=== PATIENT | male | born 1990 | race African-American/Black ===

== ENCOUNTER 2021-07-16 08:40 | Emergency (ER) | payer OTHER, SELFPAY ==
[2021-07-16 08:51] VITALS: BP 139/69; PULSE 70; RESP 18; TEMP 37.2; O2SAT 100
--- NOTE | 2021-07-16 09:17 | ED.BACK ---
HPI - Back Pain/Injury General Chief Complaint: Back Pain/Injury Stated Complaint: back pain Time Seen by Provider: 07/16/21 09:06 Source: patient and RN notes reviewed Mode of arrival: ambulatory Limitations: no limitations History of Present Illness HPI Narrative: Patient presents today complaining of mid back pain, just under his right scapula since yesterday when he opened a very heavy metal door, causing sudden pain in this area. Currently rates his pain 1/10 and does report some tingling to the right 3rd, 4th, and 5th fingers. He took some ibuprofen yesterday, which did not provide any relief. Pain does not increase with deep breath or movement. MD elicited complaint: back pain Related Data Allergies Allergy/AdvReac Type Severity Reaction Status Date / Time No Known Allergies Allergy Verified 07/16/21 09:04 Review of Systems Review of Systems: CONSTITUTIONAL: Denies body aches, fever, chills, or sweats. EYES: Denies visual changes, redness, or discharge. ENT: Denies rhinorrhea, congestion, sore throat, or otalgia. CARDIOVASCULAR: Denies chest pain, palpitations, or edema. RESPIRATORY: Denies cough or dyspnea. GASTROINTESTINAL: Denies abdominal pain, nausea, vomiting, or diarrhea. GENITOURINARY: Denies dysuria or hematuria. SKIN: Denies rash, itching, or wounds. MUSCULOSKELETAL: Denies joint pain, or myalgia.+ Back pain NEUROLOGIC: Denies headache, numbness, or weakness.+ Tingling in the fingers PSYCH: Denies depression or anxiety. PMFSH Comments At time of signature, I have reviewed and agree with nursing past medical, surgical, social and family history unless otherwise noted. Please see nursing chart for further information. There is no relevant family history pertinent to the presenting complaint Exam Narrative: GENERAL: Well-appearing, well-nourished, and in no acute distress. HEAD: Normocephalic, atraumatic. EYES: EOMI. No redness or drainage. Conjunctivae normal. ENT: Mucous membranes pink and moist. NECK: Normal AROM. CHEST: No respiratory distress. MUSCULOSKELETAL: No bony tenderness of the spine. Patient localizes pain just below the right scapula, but is nontender to this area. He has full range of motion of the right shoulder. Strength normal in the bilateral arms. Handgrips equal and strong. Distal sensation intact. Capillary refill normal. Radial pulses normal. EXTREMITIES: Normal range of motion. No edema. SKIN: Warm, dry, no rash. Capillary refill normal. Normal skin turgor. NEURO: No focal deficits. Alert and oriented x3. Gait steady. PSYCH: Normal affect. No signs of depression or anxiety. Course Vital Signs Vital signs: Vital Signs Temperature 99.0 F 07/16/21 08:51 Pulse Rate 70 07/16/21 08:51 Respiratory Rate 18 07/16/21 08:51 Blood Pressure 139/69 07/16/21 08:51 Pulse Oximetry 100 07/16/21 08:51 Temperature 99.0 F 07/16/21 08:51 Pulse Rate 70 07/16/21 08:51 Respiratory Rate 18 07/16/21 08:51 Blood Pressure 139/69 07/16/21 08:51 Pulse Oximetry 100 07/16/21 08:51 Reviewed. Pt has been instructed to follow up with his PCP regarding his elevated blood pressure today. MDM - Back Pain/Injury Differential Diagnosis Differential diagnosis: Likely other (Back strain, radiculopathy, scapular strain) Critical Care Time Critical Care Time Critical Care Time: No Discharge Plan Discharge Clinical Impression: Muscle strain of right scapular region Qualifiers: Encounter type: initial encounter Qualified Code(s): S46.911A - Strain of unspecified muscle, fascia and tendon at shoulder and upper arm level, right arm, initial encounter Patient Disposition: Home, Self-Care Condition: Stable Instructions: Thoracic Back Strain (ED) Additional Instructions: Please take the muscle relaxer (Flexeril) as prescribed. Do not drive within 8 hours of taking the Flexeril as it can make you drowsy. Take an anti-inflammatory such as Aleve or ibuprofen to hel
== END 2021-07-16 09:28 | disposition home or self-care (01) ==
PROVIDERS: Emergency Provider Nurse Practitioner
DX: S46.911A Strain of unspecified muscle, fascia and tendon at shoulder and upper arm level, right arm, initial encounter (principal); X50.0XXA Overexertion from strenuous movement or load, initial encounter
CPT/HCPCS: 99213; G0463